=== PATIENT | female | born 2000 | race Caucasian/White ===

== ENCOUNTER 2024-12-11 22:59 | Emergency (ER) | payer BC, SELFPAY ==
[2024-12-11 23:02] VITALS: BP 126/81
[2024-12-11 23:10] VITALS: BMI 19.8
[2024-12-12 00:55] VITALS: BP 105/72
[2024-12-12 01:26] LABS: Hematocrit 37.8 % (37.0-47.0); Hemoglobin 13.0 g/dL (12.0-16.0); Mean Corp Hgb Conc. 34.4 g/dL (33.0-37.0); Mean Corpuscular Volume 90.0 fL (81.0-99.0); Nucleated Red Blood Cells % 0 %; Platelet Count 230 10^3/uL (130-400); Red Cell Dist. Width 12.5 % (11.5-14.5)
[2024-12-12 01:29] LABS: HCG, Serum Qualitative Screen Negative
[2024-12-12 01:35] LABS: ALT (SGPT) 27 U/L (0-35); AST (SGOT) 26 U/L (14-36); Albumin 4.3 g/dl (3.5-5.0); Alkaline Phosphatase 49 U/L (38-126); Blood Urea Nitrogen 15 mg/dl (7-17); Calcium 9.2 mg/dl (8.4-10.2); Carbon Dioxide 22 mmol/L (22-30); Chloride 105 mmol/L (98-107); Estimated Creatinine Clearance 116 ml/min; Glucose 117 mg/dl (70-99); Lipase 38 U/L (23-300); Potassium 3.9 mmol/L (3.5-5.1); Sodium 134 mmol/L (135-145); Total Protein 7.0 g/dl (6.3-8.2); eGFR > 60.00
--- NOTE | 2024-12-12 01:56 | ED.GENMED ---
History of Present Illness
General
Chief Complaint: Abdominal Symptoms
Source: patient and family (Mother at bedside)
Exam Limitations: none
Time Seen by Provider: 12/12/24 01:37
Nursing documentation reviewed up to this point in time: agreed with
History of Present Illness
History of Present Illness:
This is a 24-year-old female with history of depression, generalized anxiety disorder, migraine headaches who presents with nausea and vomiting that began this afternoon. Symptoms persist throughout the evening despite 2 doses of oral Zofran.
She has not had a fever nor chills. She does admit to mild myalgias. She denies abdominal pain. Denies diarrhea. No dysuria urgency and or hematuria. She admits that she has not urinated since this afternoon.
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 Symptoms began shortly after returning home this afternoon.
No known close contacts with similar symptoms. No recent travel nor recent antibiotic use.
Last menstrual period 1 week ago.
She reports negative influenza and COVID testing at home.
Past History
Past History
ED Past Medical History: Psychiatric (Anxiety, depression) and Other (Migraine headaches)
ED Past Surgical History: None
Social History
Tobacco: Non-smoker
Alcohol: Occasional
Drug: Marijuana (Occasional marijuana Gummies. Denies daily use)
Personal: Single
Living: with family
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
Family History
Family History: Other (Noncontributory)
Phy Exam
Physical Exam
Physical Exam:
GENERAL: 24-year-old female appears her stated age, awake and alert, pleasant, appears in no acute distress. Mother is accompanying.
EYE: anicteric
NECK: Supple, nontender, no meningismus, no significant adenopathy.
ENT: posterior pharynx is clear, oral mucosa is mildly dry. No rhinorrhea.
CARDIAC: Regular rate and rhythm. no murmur.
LUNGS: Clear breath sounds bilaterally, no acute respiratory distress, no wheezes/rales/rhonchi
ABDOMEN: Soft, nondistended, minimal tenderness left lower quadrant with deep palpation only, no r/g, no cvat. normoactive BS.
NEUROLOGICAL: Alert and oriented x3, no focal neuro deficits.
SKIN: Warm and dry, normal color, skin intact. No rash.
MUSCULOSKELETAL: No C/C/E. peripheral pulses are full and equal b/l. No palpable tenderness.
PSYCH: Normal and appropriate interaction.
Course
Orders/Labs/Results
Orders:
Orders
12/11/24 23:15
Complete Blood Count/With Diff Urgent
Comprehensive Metabolic Panel Urgent
HCG, Serum Qualitative Screen Urgent
Lipase Urgent
Test Result ONCE
12/12/24 01:55
0.9% Sodium Chloride 1000 ml [Nss] 1,000 ml IV BOLUS
Ondansetron Injectable [Zofran] 4 mg IV NOW STA
12/12/24 03:14
Urinalysis Reflex To Culture Urgent
Date Specimen was Collected: 12/12/24
Time Specimen was Collected: 03:11
Urine Microscopic Reflex Cult Urgent
Abnormal Lab Results
12/12/24 12/12/24
01:09 03:14
Absolute Neuts (auto) 8.1 H 10^3/uL
(1.4-6.5)
Absolute Lymphs (auto) 0.3 L 10^3/uL
(1.2-3.4)
Neutrophils % 89.6 H %
(42.2-75.2)
Lymphocytes % 3.6 L %
(20.5-51.1)
Sodium 134 L mmol/L
(135-145)
Glucose 117 H mg/dl
(70-99)
Urine Ketones 3+ A
(Negative)
Ur Occult Blood Reflex 1+ A
(Negative)
Urine Albumin (Reflex) 2+ A
(Neg - Trace)
12/12/24 01:09
12/12/24 01:09
Vital Signs
Initial and Last Documented VS:
Initial Vital Signs
Temp Pulse Resp BP Pulse Ox
98.5 F 126 16 126/81 96
12/11/24 23:02 12/11/24 23:02 12/11/24 23:02 12/11/24 23:02 12/11/24 23:02
Last Documented Vital Signs
Temp Pulse Resp BP Pulse Ox
98.5 F 126 16 104/71 97
12/11/24 23:02 12/11/24 23:02 12/11/24 23:02 12/12/24 02:00 12/12/24 03:15
MDM/Problems Addressed
Differential Diagnosis Includes:
The Differential Diagnosis includes, in no particular order and is not limited to:
1. Viral gastroenteritis
2. Anxiety-related symptoms
3. Migraine with gastrointestinal symptoms
4. Gastroesophageal reflux disease
5. Foodborne illness
6. (ruled out)
7. Stress-induced gastritis
8. Vestibular disorder
9. Medication side effects
10. Endocrine imbalance
MDM/Problems Addressed:
Acute nausea and vomiting
Laboratory studies are reassuring, within normal limits.
Overall appears least mildly dehydrated. Oral mucosa is mildly dry.
Abdominal exam is overall benign.
Will initiate IV fluids and give an IV dose of Zofran.
Will consider imaging such as ultrasound or CAT scan depending on clinical course. At this point however not definitively indicated.
Chronic conditions affecting care: Psychiatric illness
*Pulse Oximetry
SaO2: 97
Oxygen Mode of Delivery: Room air
Patient hypoxic: no
*Critical Care Note
Total Time (30-74mins, 75-104mins- exclusive of procedures): Not Applicable
Update Note
Update Note:
03:50
Patient feeling markedly improved after IV fluids and IV Zofran.
No further nausea, continues to deny abdominal pain.
She is tolerating ice chips and now tolerating chrissy tiffanie.
Will discharge to home with prescription for Zofran ODT and recommendations to limit her diet to clear liquids today, slowly advance to soft bland foods thereafter.
If diarrhea ensues, she may take [id number] Imodium.
Will provide work note for out of work today.
If symptoms resolve and she remains afebrile may return to work tomorrow, December 13.
Follow-up with PCP for recheck.
Return precautions discussed.
ED Attending Note
-
Portions of this chart may have been created with voice recognition software.� Occasional wrong word or��sound alike� substitutions may have occurred due to the inherent limitations of voice recognition software.
Discharge Plan
Departure
Patient Disposition: Home (Routine Discharge)
Date of Disposition: 12/12/24
Time of Disposition: 03:58
Patient with high blood pressure during this ER visit?: No
Condition: Good
Discharge Problem:
Acute nausea and vomiting
Instructions: Clear Liquid Diet, Nausea and vomiting in adults
Prescriptions:
New
ondansetron 4 mg tablet,disintegrating
4 mg PO QID PRN (Reason: nausea and vomiting) Qty: 20 0RF
Stand Alone Forms: Return to Work
Interventions
Interventions:
*Risk Screen - Suicide Last Done: 12/11/24 23:02
*General Assessment Last Done: 12/12/24 00:57
*Neglect/Abuse Screening Last Done: 12/11/24 23:02
*ED- Fall Risk Assessment Last Done: 12/11/24 23:02
*ED COVID-19 Vaccine History Last Done: 12/11/24 23:02
*ED Influenza Vaccine History Last Done: 12/11/24 23:02
GB-Xqjxxy-Qirwzgzsjm Assessment Last Done: 12/12/24 00:57
Discharge Date and Time
Print Language: SPANISH
[2024-12-12 02:00] VITALS: BP 104/71
[2024-12-12] MEDS: ZOFRAN 4 MG IV (02:07)
[2024-12-12] MEDS: NSS 1000 IV (02:07)
[2024-12-12 03:22] LABS: Urine Character Clear (Clear)
[2024-12-12 03:28] LABS: Urine Red Blood Cell 0-2 /HPF (0-2); Urine White Cell 0-2 /HPF (0-5)
== END 2024-12-12 04:27 | disposition home or self-care (01) ==
LOC: EMR 22:59
PROVIDERS: EMERGENCY PHYSICIAN Emergency Medicine; FAMILY PHYSICIAN Physician Assistant Medical
DX: R11.2 Nausea with vomiting, unspecified (principal); E86.0 Dehydration; F41.1 Generalized anxiety disorder; F32.A Depression, unspecified
CPT/HCPCS: 99284; 96374; 96361; 80053; 81003; 81015; 83690; 84703; 85025